=== PATIENT | male | born 1985 | race American Indian/Alaskan Native ===

== ENCOUNTER 2019-06-26 20:12 | Emergency (ER) | payer OTHER ==
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
--- NOTE | 2019-06-27 06:43 | CR ---
Right tibia and fibula: AP and lateral views of the right tibia and fibula were obtained. Comparison: No previous study is available. Minimal plantar spur is seen. Minimal spur is noted at the attachment of the Achilles tendon to the calcaneus. No fracture or other bony abnormality is appreciated. Impression: 1. Minimal calcaneal spurs. 2. No additional abnormality is identified on two-view right tibia and fibula study. Diagnostic code #2 This report was dictated in [place] Standard Time
== END 2019-06-26 22:31 | disposition home or self-care (01) ==
LOC: JD.ED 20:12
DX: S80.11XA Contusion of right lower leg, initial encounter (principal); W22.8XXA Striking against or struck by other objects, initial encounter; Y93.89 Activity, other specified; Y92.812 Truck as the place of occurrence of the external cause
CPT/HCPCS: 36415; 73590-26-RT; 73590-RT; 82550; 99282; 99283-25